=== PATIENT | female | born 1975 | race Caucasian/White ===

== ENCOUNTER 2019-01-10 08:24 | Emergency (ER) | payer OTHER, SELFPAY ==
[2019-01-10 08:30] VITALS: BP 127/62; PULSE 99; RESP 22; TEMP 36.8; O2SAT 100; BMI 62.7
--- NOTE | 2019-01-10 08:31 | ED.LOWEXIN ---
HPI - Extremity Injury (Lower) General Chief Complaint: Extremity Injury, Lower Stated Complaint: left knee/thigh pain and swelling x2 days Time Seen by Provider: 01/10/19 08:31 Source: patient Mode of arrival: ambulatory Limitations: no limitations History of Present Illness HPI Narrative: Patient comes emergency department complaining of left lower extremity pain that started a couple of days ago. Patient states she does not know of any distinct injury to the area. She has a history of arthritis in her left knee, as well as some ?meniscal fraying?. The patient states that she goes to physical therapy couple of times a week for this. She also has a massage therapist to among other things, massages her lower extremities, and states she states that her massage therapist has told her that her left calf is ?very tight. Patient states she feels like there is a lump on the side of her left thigh toward the knee. Patient denies any increase in activity from usual. She denies any fevers or chills. No history of blood clots. No chest pain or shortness of breath. No other complaints at this time. Patient states she just had x-rays of her left knee done a couple of weeks ago, but she has not heard the results. She states she took a ?migraine pill? which includes acetaminophen, aspirin, and caffeine, and this seems to have improved her discomfort somewhat. Related Data Previous Rx's Medication Instructions Recorded tramadol [Ultram] 50 mg PO TID PRN #10 tab 01/10/19 Allergies Allergy/AdvReac Type Severity Reaction Status Date / Time citalopram [From Celexa] Allergy Verified 01/10/19 08:30 Review of Systems Constitutional Constitutional: Denies chills, Denies fatigue, Denies fever(s), Denies frequent falls, Denies lethargy and Denies weakness Eyes Eyes: Denies change in vision, Denies eye discharge, Denies irritation and Denies loss of vision ENT Ears, Nose, Mouth, and Throat: Denies change in voice, Denies dizziness, Denies neck pain, Denies sore throat and Denies throat swelling Cardiovascular Cardiovascular: Denies chest pain, Denies irregular heart rhythm, Denies lightheadedness, Denies palpitations, Denies dyspnea, Denies dyspnea on exertion and Denies orthopnea Respiratory Respiratory: Denies cough, Denies dyspnea, Denies dyspnea on exertion and Denies wheezing Gastrointestinal Gastrointestinal: Denies abdominal pain, Denies change in bowel habits, Denies diarrhea, Denies nausea and Denies vomiting Genitourinary Genitourinary: Denies hematuria, Denies flank pain, Denies urinary incontinence and Denies urinary urgency Musculoskeletal Musculoskeletal: Denies back pain, Denies muscle weakness, Denies neck pain, Denies numbness and Denies tingling Comments: Left leg pain Integumentary/Breasts Skin/Breast: Denies pruritus, Denies erythema, Denies rash and Denies wounds Neurologic Neurologic: Denies behavioral changes, Denies confusion, Denies dizziness, Denies frequent falls, Denies loss of vision, Denies numbness, Denies tingling and Denies weakness Psychiatric Psychiatric: Denies anxiety, Denies behavioral changes, Denies confusion, Denies depression, Denies homicidal ideation and Denies suicidal ideation Endocrine Endocrine: Denies fatigue, Denies flushing and Denies palpitations Hematologic/Lymphatic Hematologic/Lymphatic: Denies easy bruising Allergic/Immunologic Allergic/Immunologic: Denies urticaria, Denies throat swelling and Denies wheezing [facility] Medical History (Updated 01/10/19 @ 09:19 by Georgina Mann MD) Morbid obesity (Acute) Surgical History No pertinent past surgical history (Acute) Social History Smoking Status: Never smoker Social History Smoking Status: Never smoker Exam Initial Vital Signs Initial Vital Signs: Vital Signs Temperature 98.2 F 01/10/19 08:30 Pulse Rate 99 H 01/10/19 08:30 Respiratory Rate 22 01/10/19 08:30 Blood Pressure 127/62 01/10/19 08:30 Pulse Oximetry 100 01/10/19 08:30 Const General: cooperative and well developed Nutritional Appearance: well nourished and obese morbidly obese Orientation: alert, awake, oriented x3 and not confused HENFL Head: normocephalic and atraumatic Ears: external ears normal and TM's normal bilaterally Nose: external nose normal and No nasal discharge Face and sinus: sinuses nontender, face symmetric, no sinus tenderness and No dry mucous membranes Mouth: oral mucosae normal and moist mucous membranes Teeth and gingiva: dentition normal Throat: tonsils normal and uvula midline Eyes General: appearance normal, both eyes and all related structures Eyelids: eyelids normal Conjunctivae: conjunctivae normal Sclera: sclerae normal Pupils: PERRL EOM: EOM intact bilaterally Neck Neck: normal visual inspection, trachea midline, No lymphadenopathy, No midline deformity and No JVD Lymphatic: No lymphedema Chest Chest: normal inspection of the chest Resp Effort & Inspection: normal respiratory effort, able to speak in complete sentences, no respiratory distress and no use of accessory muscles Auscultation: clear to auscultation bilaterally, no rales, no rhonchi and no wheezes Cardio Rate: regular rate Rhythm: regular rhythm Heart Sounds: no click, no gallops, no murmurs and no rubs Pulses: normal peripheral pulses GI Inspection: non-distended Palpation: soft, no hepatosplenomegaly, No guarding, No pulsatile mass and No tender Auscultation: normal bowel sounds Back/Spine/Pelvis Back: No CVA tenderness Cervical Spine: cervical ROM normal and No pain with cervical ROM Thoracic/Lumbar Spine: thoracic and lumbar spine normal to inspection Skin General: no rashes or lesions noted, No jaundice and No petechiae Neuro General: alert, oriented x3, gait normal and no focal motor deficits Speech: speech normal Extrem General: no pedal edema and no calf tenderness Other: Patient has severely obese legs, and landmarks of the knee are largely obscured because of this. Patella is not able to be distinctly palpated, secondary to the degree of adipose tissue surrounding the knee. There is tenderness over the ID band distribution, as well as the anterolateral left quadriceps musculature. There is no tenderness of the posterior knee. No calf tenderness. No obvious enlargement of the left leg compared with the right. Patient has mildly decreased flexion of the left leg compared with the right. No erythema or induration. Psych Appearance: well kempt Mental Status: mental status grossly normal Attitude: cooperative Thought Content: normal and suicidality Judgment: judgment good Course Course Course Narrative: Patient was treated symptomatically with Toradol and worked up with ultrasound of the lower extremity. Ultrasound was negative for clot, but did show a fluid collection which appeared to likely be inflammatory in the patient's inferior quadriceps area, around area where the patient was feeling the discomfort. I discussed with the patient that she is most likely sustained a wear and tear type of injury which his inflamed. She does not have any evidence of a clot or of infection, and I do not feel that this fluid collection clinically represents an abscess. We have discussed home management the symptoms, including the need for the patient to wear her brace until feeling better. We have also discussed the need for follow-up with the primary care physician to discuss MRI if the symptoms drag out for more than a week. We have discussed the usual indications for return to the emergency department. Orders Ordered: ED Orders 01/10/19 08:43 US periph venous low extrem lt Stat Discontinued Medications Ketorolac Tromethamine (Toradol) 60 mg IM NOW ONE Stop: 01/10/19 08:44 Last Admin: 01/10/19 08:58 Dose: 60 mg Documented by: Vital Signs Vital signs: Vital Signs - 8 hr 01/10/19 08:30 Temperature 98.2 F Pulse Rate 99 H Respiratory Rate 22 Blood Pressure 127/62 Pulse Oximetry 100 MDM - Extremity Injury (Lower) Medical Records Attestation: I reviewed the patient's medical records. Discharge Plan Departure Patient Disposition: Home Clinical Impression: Muscle strain Instructions: DI for Leg Pain Activity Restrictions/Additional Instructions: Your ultrasound does not show any blood clots. However, there is a collection of what appears to be inflammatory fluid in the lower, lateral thigh area where you are feeling the sensation of pain and swelling. This is most likely related to some sort of injury which came up insidiously. Generally, these sorts of injuries will heal on their own, and the body will reabsorbed inflammatory fluid as healing occurs. Providing increased support by wearing your brace would most likely be helpful until things improve. You may also take anti-inflammatories such as ibuprofen to help with the discomfort. You may take the stronger pain medication, if needed. Please follow up with your primary care physician if you continue to have symptoms after the next week, to discuss the possibility of MRI. Prescriptions: New tramadol [Ultram] 50 mg tablet 50 mg PO TID PRN (Reason: pain) Qty: 10 RF: 0 Referrals: Maria De Jesus Arana MD [Primary Care Provider] -
--- NOTE | 2019-01-10 08:43 | DI.US.S_ITS ---
PROCEDURE: US PERIPH VENOUS LOW EXTREM LT INDICATIONS: LEFT LEG PAIN TECHNIQUE: Real-time imaging, as well as color and pulse Doppler interrogation, were performed of the lower extremity deep veins from the inguinal ligament to the popliteal fossa. COMPARISON: None. FINDINGS: The common femoral, femoral and popliteal veins are normally compressible, and free of intraluminal thrombus. Color and pulse Doppler demonstrate normal phasic intraluminal flow. There is normal augmentation response to distal compression maneuver. Secondary to body habitus, the mid and distal femoral veins are not seen. Within the anterior inferior thigh, there is a minimally complex nonvascular fluid collection measures 9.5 x 2.2 x 9.4 cm. IMPRESSION: Negative for deep venous thrombosis, although a portion of the mid and distal femoral vein are not seen. There is a likely hematoma seen involving the anterior inferior thigh. Please correlate with known patient history. Dictated by: Mars Yanez M.D. on 01/10/2019 at 8:20 Approved by: Mars Yanez M.D. on 01/10/2019 at 8:22
[2019-01-10] MEDS: KETOROLAC 60 MG/2 ML VIAL IM (08:58)
[2019-01-10 09:27] VITALS: BP 146/79; PULSE 95; RESP 17; O2SAT 95
== END 2019-01-10 09:39 | disposition home or self-care (01) ==
PROVIDERS: Emergency Provider Emergency Medicine; PCP Student in an Organized Health Care Education/Training Program
DX: S86.912A Strain of unspecified muscle(s) and tendon(s) at lower leg level, left leg, initial encounter (principal)
CPT/HCPCS: 93971; 96372; 99282; 99284; J1885

== ENCOUNTER 2024-04-07 19:39 | Emergency (ER) | payer OTHER, SELFPAY ==
[2024-04-07 19:46] VITALS: BP 115/81; PULSE 92; RESP 18; TEMP 35.9; O2SAT 94; BMI 57.6
--- NOTE | 2024-04-07 19:53 | ED_ITS ---
HPI - Abdominal Pain General Chief Complaint: Abdominal Pain Stated Complaint: Gallbladder Issues Sever Abd Pain Time Seen by Provider: 04/07/24 19:52 Source: patient Mode of arrival: Ambulatory History of Present Illness HPI narrative: Patient is a 48-year-old past medical history of diabetes, hypertension, hyperlipidemia presents to the emergency department from home for evaluation of upper abdominal pain. States that the pain is cramping in nature worse when she eats fatty foods started on Tuesday. States that she has also changed her medication from Ozempic to Mounjaro, she is concerned that this might be an issue with her gallbladder given the fact that she said in 2017 she had a HIDA scan and was told that her gallbladder was ?sluggish. Patient not on any blood thinners no recent travel no sick contacts, not complaining of any headache visual disturbances chest pain shortness of breath fever chills or any other GI/ symptoms time. Related Data Previous Rx's Medication Instructions Recorded tramadol 50 mg tablet (Ultram) 50 mg PO TID PRN pain #10 tabs 01/10/19 ondansetron 4 mg disintegrating 4 mg PO Q8H 5 days #15 tabs 04/07/24 tablet oxycodone-acetaminophen 5 mg-325 1 tab PO Q8H PRN pain 3 days #9 04/07/24 mg tablet (Percocet) tabs Allergies Allergy/AdvReac Type Severity Reaction Status Date / Time amoxicillin [From Augmentin] Allergy ITCHING Verified 04/07/24 19:54 ciprofloxacin [From Cipro] Allergy Verified 04/07/24 19:54 citalopram [From Celexa] Allergy Verified 01/10/19 08:30 clavulanic acid Allergy ITCHING Verified 04/07/24 19:54 [From Augmentin] Review of Systems Review of Systems Narrative: General: Denies fever, chills, weight loss HEENT: Denies headache, eye drainage, eye irritation, head trauma, sore throat, voice change Cardiovascular: Denies any chest pain, palpitations, shortness of breath, tachycardia Respiratory: Denies any shortness of breath, cough, wheeze, stridor GI/: Positive abdominal pain, nausea, denies vomiting, diarrhea, bright red blood per rectum, melanotic stools, urinary frequency, urinary retention, dysuria, hematuria MSK: Denies any joint pain, muscle pains, swelling Skin: Denies any rashes, lesions, discoloration Neuro: Denies any headache, lightheadedness, dizziness, fainting, weakness Psych: Denies SI/HI Patient History Medical History (Updated 04/07/24 @ 21:53 by Kevin Zhang DO) Morbid obesity Surgical History No pertinent past surgical history Social History Smoking Status: Never smoker Smoking Status: Never smoker Exam Narrative Exam Narrative: General: Cooperative, comfortable, well-developed, not in acute distress HEENT: Normocephalic, atraumatic, PERRLA, normal sclera, eyelids normal, Neck: Active full range of motion, atraumatic Chest: Normal to inspection, negative crepitus, no overlying erythema ecchymosis Respiratory: Normal respiratory effort, not in acute respiratory distress, clear to auscultation bilaterally negative cough, wheeze, tachypnea, rhonchi, rales Cardiology: Regular rate rhythm negative gallop, murmur, rubs GI/: Normal to inspection, soft, nonrigid, no tenderness to palpation, exam deferred MSK: Full range of active range of motion of all 4 extremities, atraumatic Skin: No rashes lesions noted Neuro: Alert awake oriented x3, moves all 4 extremities spontaneously, cranial nerves intact, able to answer all questions appropriately follows commands appropriately Psych: Cooperative, negative suicidal or homicidal ideations Initial Vital Signs Initial Vital Signs: Vital Signs Temperature 96.6 F L 04/07/24 19:46 Pulse Rate 92 H 04/07/24 19:46 Respiratory Rate 18 04/07/24 19:46 Blood Pressure 115/81 04/07/24 19:46 Pulse Oximetry 94 04/07/24 19:46 Oxygen Delivery Method Room Air 04/07/24 19:46 Course Orders Ordered: ED Orders 04/07/24 19:55 Complete Blood Count AUTO DIFF Stat Comprehensive Metabolic Panel Stat Lipase Stat MAG [Magnesium] Stat 04/07/24 20:00 US abdomen limited Stat 04/07/24 20:39 CT abdomen pelvis w con Stat Ondansetron HCl (Ondansetron 4 Mg/2 Ml Inj) 4 mg IV NOW PRN PRN Reason: Nausea And Vomiting Ondansetron HCl (Ondansetron 4 Mg Odt) 4 mg PO NOW PRN PRN Reason: Nausea And Vomiting Oxycodone/Acetaminophen (Oxycodone/Acetaminophen 5/325 Tablet) 1 tab PO NOW ONE Stop: 04/07/24 21:59 Discontinued Medications Ketorolac Tromethamine (Ketorolac 30 Mg/Ml Vial) 15 mg IM NOW ONE Stop: 04/07/24 20:02 Last Admin: 04/07/24 20:07 Dose: 15 mg Documented By: NILESH Vital Signs Vital signs: Vital Signs - 8 hr 04/07/24 19:46 Temperature 96.6 F L Pulse Rate 92 H Respiratory Rate 18 Blood Pressure 115/81 Pulse Oximetry 94 Oxygen Delivery Method Room Air MDM - Abdominal Pain Differential Diagnosis Differential diagnosis: Likely abdominal pain, pancreatitis and other (Cholelithiasis, cholecystitis) Lab Data 04/07/24 19:55 04/07/24 19:55 Labs: Lab Results 04/07/24 Range/Units 19:55 WBC 15.0 H (4.5-11.0) X10^3/uL RBC 4.59 (4.0-5.2) X10^6/uL Hgb 13.2 (12.0-16.0) g/dL Hct 39.3 (36-46) % MCV 85.7 (80-100) fL MCH 28.7 (26-34) PG MCHC 33.5 (30-36) % RDW 13.7 (11.6-14.8) % Plt Count 410 H (150-400) X10^3/uL Neut % (Auto) 62.7 (50-75) % Lymph % (Auto) 27.1 (25-40) % [place] % (Auto) 6.7 (3-14) % Eos % (Auto) 2.8 (2-4) % Baso % (Auto) 0.7 (0-2) % Neut # (Auto) 9400 H (8797-9687) /uL Lymph # (Auto) 4100 (0955-7851) /uL [place] # (Auto) 1000 H (0-900) /uL Eos # (Auto) 400 (0-450) /uL Baso # (Auto) 100 (0-100) /uL Sodium 136 L (137-145) mmol/L Potassium 3.8 (3.4-5.1) mmol/L Chloride 106 (98-107) mmol/L Carbon Dioxide 25 (22-32) mmol/L BUN 18 H (7-17) mg/dL Creatinine 0.77 (0.52-1.04) mg/dL Estimated GFR > 60 (>60) mL/min BUN/Creatinine Ratio 23.4 H (6-22) Glucose 96 (70-100) mg/dL Calcium 8.9 (8.4-10.2) mg/dL Magnesium 1.8 (1.6-2.3) mg/dL Total Bilirubin 0.4 (0.2-1.3) mg/dL AST 25 (14-36) IU/L ALT 27 (<35) IU/L Alkaline Phosphatase 125 (38-126) U/L Total Protein 7.3 (6.3-8.2) g/dL Albumin 3.7 (3.5-5.0) g/dL Globulin 3.6 (1.7-4.1) g/dL Albumin/Globulin Ratio 1.0 (1.0-2.8) Lipase 2721 H (23-300) U/L Imaging Data US - abdomen: Radiologist's Impression: [place] [address] Ultrasound Report Signed Patient: Shira Samayoa MR#: [id number] : 1975 Acct:[id number] Age/Sex: 48 / F Date of Service: 04/07/24 Loc: ED Accession Number: [id number] Procedure: US abdomen limited Ordering Provider: Kevin Zhang D.O. PROCEDURE: US ABDOMEN LIMITED INDICATIONS: RUQ abd pain, hx of gallbladder sludge TECHNIQUE: Real-time scanning was performed of the abdominal and retroperitoneal organs, with image documentation. COMPARISON: [facility], CT, CT ABDOMEN PELVIS W CON, 04/07/2024, 20:46. [facility], US, US ABDOMEN COMPLETE, 05/26/2023, 7:57. FINDINGS: Liver: The liver demonstrates enlarged size. The liver demonstrates generalized moderately increased echogenicity. This decreases ultrasound sensitivity for detection of hepatic masses. Gallbladder: No findings of gallstones or sludge are seen. The gallbladder wall is not thickened, measuring 3 mm or less. No specific pericholecystic fluid is seen. The sonographic Li sign is negative. Biliary ducts: Intrahepatic bile ducts are non-dilated. Extrahepatic bile duct caliber measures 3-4 mm. Normal is 6-7 mm or less in diameter, or 10 mm or less post-cholecystectomy. Pancreas: Not well seen, obscured by overlying bowel gas and body habitus. Spleen: Spleen is normal in size and homogeneous in echotexture. Miscellaneous: No free abdominal fluid. This study is limited by body habitus. IMPRESSION: No stones or sludge can be seen. Normal gallbladder by ultrasound. Enlarged, fatty liver. CT scan - abdomen/pelvis: Radiologist's Impression: [address] [address] [address] Scan Report Signed Patient: Shira Samayoa MR#: [id number] : 1975 Acct:[id number] Age/Sex: 48 / F Date of Service: 04/07/24 Loc: ED Accession Number: [id number] Procedure: CT abdomen pelvis w con Ordering Provider: Kevin Zhang D.O. PROCEDURE: CT ABDOMEN PELVIS W CON INDICATIONS: Pancreatitis TECHNIQUE: After the administration of intravenous contrast, axial sections acquired from the lung bases to the pubic symphysis. Coronal and sagittal reformats were performed. For radiation dose reduction, the following was used: automated exposure control, adjustment of mA and/or kV according to patient size. COMPARISON: [facility], , US ABDOMEN LIMITED, 04/07/2024, 20:06. (Additional prior imaging is not available for review from the archive at the time of this dictation.) FINDINGS: Image quality: Diagnostic. Lower Chest: No significant findings. ABDOMEN: Liver: No solid mass. The liver is enlarged. Likely mild fatty infiltration can be seen. Gallbladder: No radiopaque gallstones or wall thickening. Biliary ducts: No biliary dilation. Pancreas: There is abnormal fatty stranding seen adjacent to the body and tail of pancreas. No focal fluid collections can be seen. No soft tissue gas is seen. No abnormal enhancement of the pancreas is seen to suggest pancreatic necrosis. No ductal dilation. Spleen: Size is within normal limits. Adrenal Glands: No adrenal nodules. Kidneys and Ureters: No hydronephrosis. No solid mass. No complex renal cystic lesion which requires follow up. Stomach and Bowel: Normal colonic caliber, without significant wall thickening. Peritoneum: No abnormal intraperitoneal fluid. No free air. Ventral Wall: A moderate periumbilical hernia is seen, containing fat. Abdominal Nodes: No retroperitoneal or mesenteric adenopathy by size criteria. Vessels: Aorta and inferior vena cava are normal in size. PELVIS: Pelvic Organs: The IUD is seen at its expected location. No adnexal masses are seen on either side. Bladder: No bladder wall thickening, accounting for underdistention. Pelvic Nodes: No enlarged lymph nodes. Miscellaneous: No inguinal hernias are seen. Bones: No aggressive osseous abnormality. Focal lower lumbar spine degenerative changes are seen. IMPRESSION: Pancreatitis. No peripancreatic fluid collections or findings of pancreatic necrosis can be seen. No pancreatic ductal dilatation can be seen. Additional findings: Hepatomegaly, with likely fatty infiltration Moderately sized periumbilical hernia Focal lower lumbar spine degenerative change IUD MDM Narrative Medical decision making narrative: 48-year-old female history of diabetes hypertension hyperlipidemia presents to the emergency department for right upper quadrant abdominal pain ongoing persistent past several years states that he has always been intermittent nature worse with food, however in normally resolves itself after few hours, however she says on Tuesday she did eat a particularly fatty food and since then has had persistent pain nausea but no vomiting therefore decided come into the ED for further evaluation treatment. Patient had lab work performed, patient with notable mildly elevated leukocytosis at 15, patient elevated lipase consistent with pancreatitis at 2721. No elevated LFTs no elevated bilirubin, ultrasound showed, hepatosteatosis, CT scan showed pancreatitis without peripancreatic fluid collections or necrosis. No pancreatic ductal dilation, given the fact that patient recently had change to her medication to Mounjaro acute pancreatitis most likely secondary to this. I have informed the patient to abstain from taking this and to go back to her previous Ozempic treatment and to follow up with her primary care doctor who manages her diabetes. Patient is able to tolerate p.o. liquids and solids, she will be safe for discharge home with outpatient follow up with primary care and GI in outpatient setting. Discharge Plan Departure Patient Disposition: Home Clinical Impression: Pancreatitis Activity Restrictions/Additional Instructions: Please follow up with your primary care doctor, GI, please stop taking the Mounjaro Please read the discharge instructions sheet carefully and bring all papers to all doctor follow-up visits, as it may contain information that your doctor may want to see. Disease processes change and evolve, if your symptoms worsen or if you develop any new symptoms that are concerning to you please return for evaluation. Your evaluation today does not show any evidence of any life- threatening/serious illnesses requiring admission to the hospital or surgery. Please follow-up with your doctor for re-evaluation in approximately 1 day. Seek immediate medical attention for any worrisome symptoms. *If you do not have a primary care provider please contact the [facility] Resource line at [phone]. They will ask some questions about your medical history and help get you set up with a doctor in the community. Prescriptions: New ondansetron 4 mg tablet,disintegrating 4 mg PO Q8H 5 Days Qty: 15 0RF oxycodone-acetaminophen [Percocet] 5-325 mg tablet 1 tab PO Q8H PRN (Reason: pain) 3 Days Qty: 9 0RF No Action tramadol [Ultram] 50 mg tablet 50 mg PO TID PRN (Reason: pain) Qty: 10 0RF Referrals: Maria De Jesus Arana MD [Primary Care Provider] - Stand Alone Forms: Patient Portal/API/Survey
--- NOTE | 2024-04-07 20:00 | DI.US.S_ITS ---
PROCEDURE: US ABDOMEN LIMITED INDICATIONS: RUQ abd pain, hx of gallbladder sludge TECHNIQUE: Real-time scanning was performed of the abdominal and retroperitoneal organs, with image documentation. COMPARISON: [facility], CT, CT ABDOMEN PELVIS W CON, 04/07/2024, 20:46. [facility], US, US ABDOMEN COMPLETE, 05/26/2023, 7:57. FINDINGS: Liver: The liver demonstrates enlarged size. The liver demonstrates generalized moderately increased echogenicity. This decreases ultrasound sensitivity for detection of hepatic masses. Gallbladder: No findings of gallstones or sludge are seen. The gallbladder wall is not thickened, measuring 3 mm or less. No specific pericholecystic fluid is seen. The sonographic Li sign is negative. Biliary ducts: Intrahepatic bile ducts are non-dilated. Extrahepatic bile duct caliber measures 3-4 mm. Normal is 6-7 mm or less in diameter, or 10 mm or less post-cholecystectomy. Pancreas: Not well seen, obscured by overlying bowel gas and body habitus. Spleen: Spleen is normal in size and homogeneous in echotexture. Miscellaneous: No free abdominal fluid. This study is limited by body habitus. IMPRESSION: No stones or sludge can be seen. Normal gallbladder by ultrasound. Enlarged, fatty liver. Dictated by: Mars Yanez M.D. on 04/07/2024 at 20:04 Approved by: Mars Yanez M.D. on 04/07/2024 at 20:05
[2024-04-07 20:01] LABS: Add Manual Diff / Slide Review NO; Basophils Absolute Auto 100 /uL (0-100); Basophils Percent Auto 0.7 % (0-2); Eosinophils Absolute Auto 400 /uL (0-450); Eosinophils Percent Auto 2.8 % (2-4); Hematocrit 39.3 % (36-46); Hemoglobin 13.2 g/dL (12.0-16.0); Lymphocytes Absolute Auto 4100 /uL (1100-4500); Lymphocytes Percent Auto 27.1 % (25-40); Mean Corpuscular HGB Conc 33.5 % (30-36); Mean Corpuscular Hemoglobin 28.7 PG (26-34); Mean Corpuscular Volume 85.7 fL (80-100); Monocytes Absolute Auto 1000 /uL (0-900); Monocytes Percent Auto 6.7 % (3-14); Neutrophils Absolute Auto 9400 /uL (1500-7000); Neutrophils Percent Auto 62.7 % (50-75); Platelet Count 410 X10^3/uL (150-400); Red Blood Cell Count 4.59 X10^6/uL (4.0-5.2); Red Cell Distribution Width 13.7 % (11.6-14.8)
[2024-04-07] MEDS: KETOROLAC 30 MG/ML VIAL 15 MG IM (20:07)
[2024-04-07 20:14] LABS: Alanine Aminotransferase 27 IU/L (<35); Albumin 3.7 g/dL (3.5-5.0); Alkaline Phosphatase 125 U/L (38-126); Aspartate Aminotransferase 25 IU/L (14-36); BUN Creatinine Ratio 23.4 (6-22); Bilirubin Total 0.4 mg/dL (0.2-1.3); Blood Urea Nitrogen 18 mg/dL (7-17); Calcium 8.9 mg/dL (8.4-10.2); Carbon Dioxide 25 mmol/L (22-32); Chloride 106 mmol/L (98-107); Estimated Glomerular Filt Rate > 60 mL/min (>60); Globulin 3.6 g/dL (1.7-4.1); Glucose 96 mg/dL (70-100); HEMOLYSIS < 15 (0-50); Magnesium 1.8 mg/dL (1.6-2.3); Potassium 3.8 mmol/L (3.4-5.1); Sodium 136 mmol/L (137-145); Total Protein 7.3 g/dL (6.3-8.2)
[2024-04-07 20:35] LABS: Lipase 2721 U/L (23-300)
--- NOTE | 2024-04-07 20:39 | DI.CT.S_ITS ---
PROCEDURE: CT ABDOMEN PELVIS W CON INDICATIONS: Pancreatitis TECHNIQUE: After the administration of intravenous contrast, axial sections acquired from the lung bases to the pubic symphysis. Coronal and sagittal reformats were performed. For radiation dose reduction, the following was used: automated exposure control, adjustment of mA and/or kV according to patient size. COMPARISON: [facility], US ABDOMEN LIMITED, 04/07/2024, 20:06. (Additional prior imaging is not available for review from the archive at the time of this dictation.) FINDINGS: Image quality: Diagnostic. Lower Chest: No significant findings. ABDOMEN: Liver: No solid mass. The liver is enlarged. Likely mild fatty infiltration can be seen. Gallbladder: No radiopaque gallstones or wall thickening. Biliary ducts: No biliary dilation. Pancreas: There is abnormal fatty stranding seen adjacent to the body and tail of pancreas. No focal fluid collections can be seen. No soft tissue gas is seen. No abnormal enhancement of the pancreas is seen to suggest pancreatic necrosis. No ductal dilation. Spleen: Size is within normal limits. Adrenal Glands: No adrenal nodules. Kidneys and Ureters: No hydronephrosis. No solid mass. No complex renal cystic lesion which requires follow up. Stomach and Bowel: Normal colonic caliber, without significant wall thickening. Peritoneum: No abnormal intraperitoneal fluid. No free air. Ventral Wall: A moderate periumbilical hernia is seen, containing fat. Abdominal Nodes: No retroperitoneal or mesenteric adenopathy by size criteria. Vessels: Aorta and inferior vena cava are normal in size. PELVIS: Pelvic Organs: The IUD is seen at its expected location. No adnexal masses are seen on either side. Bladder: No bladder wall thickening, accounting for underdistention. Pelvic Nodes: No enlarged lymph nodes. Miscellaneous: No inguinal hernias are seen. Bones: No aggressive osseous abnormality. Focal lower lumbar spine degenerative changes are seen. IMPRESSION: Pancreatitis. No peripancreatic fluid collections or findings of pancreatic necrosis can be seen. No pancreatic ductal dilatation can be seen. Additional findings: Hepatomegaly, with likely fatty infiltration Moderately sized periumbilical hernia Focal lower lumbar spine degenerative change IUD Dictated by: Mars Yanez M.D. on 04/07/2024 at 20:09 Approved by: Mars Yanez M.D. on 04/07/2024 at 20:11
[2024-04-07 21:40] VITALS: PULSE 81; RESP 18; O2SAT 95
[2024-04-07 22:00] VITALS: BP 118/72; PULSE 84; RESP 18; O2SAT 95
[2024-04-07] MEDS: OXYCODONE/ACETAMINOPHEN 5/325 TABLET 1 TAB PO (22:16)
[2024-04-07] MEDS: OXYCODONE/APAP 5/325 PREPACK 1 BOTTLE MISC (22:16)
== END 2024-04-07 22:28 | disposition home or self-care (01) ==
PROVIDERS: Emergency Provider Student in an Organized Health Care Education/Training Program; PCP Student in an Organized Health Care Education/Training Program
DX: K85.90 Acute pancreatitis without necrosis or infection, unspecified (principal); R10.11 Right upper quadrant pain
CPT/HCPCS: 36415; 74177; 76705; 80053; 83690; 83735; 85025; 96372; 99284; J1885; Q9967

== ENCOUNTER 2024-04-09 21:34 | Emergency (ER) | payer OTHER, SELFPAY ==
[2024-04-09 21:44] VITALS: BP 126/67; PULSE 91; RESP 20; TEMP 36.3; O2SAT 96; BMI 57.6
--- NOTE | 2024-04-09 23:36 | PC.NURSE ---
This RN calls out in lobby to check on patient. Patient is not found. Checked with registration and uknown if patient left.
--- NOTE | 2024-04-09 23:47 | PC.NURSE ---
This RN goes to waiting room and calls out for patient a second time. Patient is not in waiting room.
--- NOTE | 2024-04-10 00:15 | PC.NURSE ---
This RN attempts to find patient in waiting room for third time. Patient is not found.
--- NOTE | 2024-04-10 03:10 | ED.ABDPAIN ---
HPI - Abdominal Pain General Chief Complaint: Abdominal Pain Stated Complaint: Pancreatitis, SoB Mode of arrival: Ambulatory History of Present Illness HPI narrative: Patient left without being seen by provider Related Data Previous Rx's Medication Instructions Recorded tramadol 50 mg tablet (Ultram) 50 mg PO TID PRN pain #10 tabs 01/10/19 ondansetron 4 mg disintegrating 4 mg PO Q8H 5 days #15 tabs 04/07/24 tablet oxycodone-acetaminophen 5 mg-325 1 tab PO Q8H PRN pain 3 days #9 04/07/24 mg tablet (Percocet) tabs Allergies Allergy/AdvReac Type Severity Reaction Status Date / Time amoxicillin [From Augmentin] Allergy ITCHING Verified 04/07/24 19:54 ciprofloxacin [From Cipro] Allergy Verified 04/07/24 19:54 citalopram [From Celexa] Allergy Verified 01/10/19 08:30 clavulanic acid Allergy ITCHING Verified 04/07/24 19:54 [From Augmentin] Patient History Medical History (Updated 04/10/24 @ 00:24 by Maura Dias RN) Morbid obesity Surgical History No pertinent past surgical history Social History Smoking Status: Never smoker Smoking Status: Never smoker Exam Initial Vital Signs Initial Vital Signs: Vital Signs Temperature 97.4 F L 04/09/24 21:44 Pulse Rate 91 H 04/09/24 21:44 Respiratory Rate 20 04/09/24 21:44 Blood Pressure 126/67 04/09/24 21:44 Pulse Oximetry 96 04/09/24 21:44 Oxygen Delivery Method Room Air 04/09/24 21:44 Course Orders Ordered: Discontinued Medications Ondansetron HCl (Ondansetron 4 Mg/2 Ml Inj) 4 mg IV NOW PRN PRN Reason: Nausea And Vomiting Ondansetron HCl (Ondansetron 4 Mg Odt) 4 mg PO NOW PRN PRN Reason: Nausea And Vomiting Vital Signs Vital signs: Vital Signs - 8 hr 04/09/24 21:44 Temperature 97.4 F L Pulse Rate 91 H Respiratory Rate 20 Blood Pressure 126/67 Pulse Oximetry 96 Oxygen Delivery Method Room Air Discharge Plan Departure Patient Disposition: Left Without Being Seen Clinical Impression: Patient left after triage Prescriptions: No Action tramadol [Ultram] 50 mg tablet 50 mg PO TID PRN (Reason: pain) Qty: 10 0RF ondansetron 4 mg tablet,disintegrating 4 mg PO Q8H 5 Days Qty: 15 0RF oxycodone-acetaminophen [Percocet] 5-325 mg tablet 1 tab PO Q8H PRN (Reason: pain) 3 Days Qty: 9 0RF
== END 2024-04-10 00:15 | disposition left against medical advice (07) ==
PROVIDERS: Emergency Provider Emergency Medicine; PCP Student in an Organized Health Care Education/Training Program
DX: K85.90 Acute pancreatitis without necrosis or infection, unspecified (principal)
CPT/HCPCS: 99281